=== PATIENT | female | born 1995 | race Caucasian/White ===

== ENCOUNTER 2022-12-19 12:04 | Outpatient (CLI) | payer MEDICAID, SELFPAY | END 2022-12-19 12:05 | disposition home or self-care (01) | LOC: NFLDREF 12:07 | PROVIDERS: Visit Provider Advanced Practice Midwife | DX: O09.33 Supervision of pregnancy with insufficient antenatal care, third trimester (principal); Z3A.33 33 weeks gestation of pregnancy | CPT/HCPCS: 82728; 86592 ==

== ENCOUNTER 2023-01-02 09:15 | Outpatient (CLI) | payer MEDICAID, SELFPAY | END 2023-01-02 09:16 | disposition home or self-care (01) | LOC: NFLDREF 01-05 14:51 | PROVIDERS: Visit Provider Advanced Practice Midwife | DX: Z34.83 Encounter for supervision of other normal pregnancy, third trimester (principal) | CPT/HCPCS: 87081; 87653 ==

== ENCOUNTER 2023-01-26 09:50 | Outpatient (CLI) | payer BC, SELFPAY ==
--- NOTE | 2023-01-26 10:15 | CRLHL7_ITS ---
For Patients: As a result of the Cures Act, medical imaging exams and procedure reports are released immediately into your electronic medical record. You may view this report before your referring provider. If you have questions, please contact your health care provider. INDICATION: Third trimester scan, evaluate growth. COMPARISON: 10/09/2022 TECHNIQUE: Real time samaniego scale imaging of the fetus was performed. FINDINGS: Sonographic imaging demonstrates a single living intrauterine gestation. Fetus demonstrates a regular cardiac rate of 152 beats per minute. Fetus has a vertex position. The placenta lies left posterior. Amniotic fluid volume appears normal and there is a single deepest vertical pocket: 4.0 cm. The estimated weight is 3262gm which lies at the 30th %. On the prior OB ultrasound exam dated 10/09/2022 the estimated weight was at the 59th%. BPD 5th percentile. HC 6th percentile. AC 53rd percentile. FL 6th percentile. The HC/AC ratio measures 0.95 range (0.92-1.05). IMPRESSION: Sonographic gestational age 37 weeks 0 days and sonographic due date 02/16/2023. sonographic age 16 days behind the clinical age. Estimated weight 30th percentile. Abdominal circumference 53rd percentile. Dictated by Eliceo Huddleston MD @ 01/27/2023 5:43:54 AM (Electronically Signed)
== END 2023-01-26 09:51 | disposition home or self-care (01) ==
LOC: US 09:50
PROVIDERS: Visit Provider Advanced Practice Midwife
DX: O36.5930 Maternal care for other known or suspected poor fetal growth, third trimester, not applicable or unspecified (principal); Z3A.37 37 weeks gestation of pregnancy
CPT/HCPCS: 76816

== ENCOUNTER 2023-02-02 09:29 | Inpatient (IN) | payer BC, SELFPAY ==
[2023-02-02] VITALS (16 sets, daily range): BP systolic 98–125; BP diastolic 55–72; PULSE 48–93; RESP 16–18; TEMP 36.4–37.2; O2SAT 93–99; BMI 29.0
[2023-02-02] MEDS: OXYTOCIN 30 unit/500 ML in NS 30 UNIT/500 ML BAG 300 UNIT IVPB (10:00)
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
--- NOTE | 2023-02-02 10:57 | W.PM.OBVAGDE ---
OB Procedure Vag Delivery Mother Details Mother Details: The patient is a 27 year-old, 9, Para 4, admitted on 02/02/23 at 40.2 Days gestation. Karen presented in active labor and was found to by 9.5cm per RN exam. She started leaking fluid around 0700 and started reza shortly after. She continued to progress after admission. Only scant amounts of clear and pink fluid noted before delivery but thin meconium stained amniotic fluid noted with delivery of the head. She desired an epidural but there was not adequate time after her arrival. She coped well with contractions and during pushing. Baby was delivered after only a few pushes with good control. A loose nuchal cord was noted and was reduced before delivery. : 9 Para: 4 Weeks Gestation: 40.2 Admission Date: 02/02/23 Additional Details Amniotic Membrane Status: SROM Amniotic Membrane Rupture Date: 02/02/23 Amniotic Membrane Rupture Time: 07:00 Amniotic Membrane Fluid Description: Meconium Stained and Yellow Analgesia/Anesthesia Type: Nitrous Oxide Waterbirth: No Pitcoin: Yes (for [facility] only) Labor Onset: 07:00 Complete: 09:53 (assumed with pushing) Pushin:53 Heart: heart tones during second stage were category I. Delivery Details Delivery Date: 02/02/23 Delivery Time: 09:59 Route of delivery: Gender: Female Infant Viability: Alive; Heart Rate Present Position at Delivery: OA Delivery Details: At 0959 a viable female delivered in vertex OUSMANE presentation over intact perineum via spontaneous vaginal delivery.? was placed on maternal abdomen.? Cord was clamped and cut after a >5 minute delay.? Nose and mouth were bulb suctioned.? weight 3310g (7lb 5oz).? 7 at 1 minute and 8 at 5 minutes.? Shoulder dystocia: no.? Nuchal cord: yes, x1, loose, reduced on perineum.?There was partial tearing of the umbilical cord when gentle cord traction was applied. Could see the uterus almost to the perineum but unable to use cord traction as any pressure on the cord resulted in further tearing. Bleeding was stable. She was able to get in a squatting position and push the placenta out with only guidance of the placenta using the cord. There were trailing membranes that did release with gentle teasing with a ring forceps. 1 Minute Interval Total Score: 7 5 Minute Interval Total Score: 8 Additional Details Shoulder Dystocia: No Placenta Delivery Time: 10:27 Placental Delivery Description: Spontaneous Procedure Done: Global Blood Loss: 100 Laceration: None Episiotomy Description: None Blood Loss Measurement Type: QBL Bakri Used: No Sponge/Need Count Correct: Yes Cord Vessel Description: 3 Vessels, Nuchal Cord, Loose and Reduced Event Summary Status: Mother and infant were stable after delivery. Disposition: floor
[2023-02-02] MEDS: OXYTOCIN 30 unit/500 ML in NS 30 UNIT/500 ML BAG 300 UNIT IV (22:28)
[2023-02-02] MEDS: IBUPROFEN 600 MG TABLET PO (22:34)
[2023-02-03 01:17] VITALS: BP 84/54; PULSE 77; RESP 16; TEMP 36.9; O2SAT 97
[2023-02-03 01:24] VITALS: BP 111/72; PULSE 82; RESP 18; O2SAT 99
[2023-02-03 03:57] VITALS: BP 94/62; PULSE 78; RESP 18; TEMP 36.6; O2SAT 97
[2023-02-03 04:10] LABS: Basophils Percent Auto 0.2 % (0.0-3.0); Eosinophils Percent Auto 0.2 % (0.0-7.0); Hematocrit 27.5 % (33.0-51.0); Hemoglobin* 8.8 gm/dL (12.0-16.0); Immature Granulocytes Pct Auto 0.2 %; Lymphocytes Percent Auto 10.2 % (20-44); Mean Corpuscular HGB Conc 32 gm/dL (32-36); Mean Corpuscular Hemoglobin 29 pg (26-34); Mean Corpuscular Volume 89 fL (80-100); Monocytes Percent Auto 6.2 % (0.0-11.0); Platelet Count* 228 K/uL (140-440); RDW Coefficient of Variation % 15.4 % (11.5-15.5); Red Blood Count 3.08 m/uL (4.00-5.20); White Blood Count* 17.15 K/uL (4.50-11.00)
[2023-02-03 04:13] LABS: Slide Review Reflex No
--- NOTE | 2023-02-03 09:03 | PM.OBPNVD1 ---
OB - PN:Subj Subjective Date Seen: 02/03/23 Patient comments OB post-: pain well controlled, perineal pain, tolerating diet and flatus present [place] status: and doing well [place] feeding status: exclusively Narrative: Karen is a 27 y.o. G 9 P 4054 who was admitted to L & D for spontaneous onset of labor. ?She had an uncomplicated NVD. Her was complicated by slow hemorrohage. Her Total QBL as of this morning was 1015. Hgb is 8.8, pt is asymptomatic. The patient feels well. ?The pain is well controlled with current medications. ?She has no new complaints. ?She is breast feeding and reports things are going well. the patient has done well.? Vitals have been stable.? She has remained afebrile.? Has a good appetite, is tolerating a general diet. ?She is voiding without difficulty.? She is passing gas and has not had a bowel movement.? She is ambulating and denies any dizziness.? Has small amount of rubra lochia. She is planning condoms for prevention. Pt does desire discharge home today. Encouraged to monitor bleeding today due to slow PPH with discharge tomorrow. Will reassess later today. OB - PN: Obj Exam Physical Exam: Vital signs: Temp Pulse Resp BP Pulse Ox O2 Del Method 97.9 F 78 18 94/62 97 Room Air 02/03/23 03:57 02/03/23 03:57 02/03/23 03:57 02/03/23 03:57 02/03/23 03:57 02/03/23 03:57 Narrative: GENERAL APPEARANCE:? normal affect, alert, no distress MOOD:? appropriate CHEST:? clear to auscultation HEART:? regular rate and rhythm ABDOMEN:? soft, non-tender the uterine fundus is 2 below Umbilicus, Midline and is appropriate for the stage of recovery. PERINEUM:? mild edema of the perineum. EXTREMITIES:? normal and trace edema OB - PN: Obj Data Labs Labs: Laboratory Results - last 24 hr 02/03/23 04:00 WBC 17.15 H RBC 3.08 L Hgb 8.8 L Hct 27.5 L MCV 89 MCH 29 MCHC 32 RDW Coeff of [place] 15.4 Plt Count 228 Neut % (Auto) 83.0 H Lymph % (Auto) 10.2 L [place] % (Auto) 6.2 Eos % (Auto) 0.2 Baso % (Auto) 0.2 Neut # (Auto) 14.20 H Lymph # (Auto) 1.70 [place] # (Auto) 1.10 H Eos # (Auto) 0.00 Baso # (Auto) 0.00 Abs Immat Gran (auto) 0.00 Imm/Tot Granulo (auto) 0.2 Blood Type O Positive Antibody Screen NEGATIVE OB - PN: A/P Delivery Assessment and Plan (1) care and examination immediately after delivery: Status: Acute (2) Lactating mother: Status: Acute (3) Late care: Status: Acute (4) Anemia: Problem details: Requested records from [facility] Status: Acute Assessment and Plan: Taking oral iron, does not respond well. Plan iron transfusion while in hospital. Would benefit from outpatient Iron transfusion. (5) Normal vaginal delivery: Status: Acute (6) hemorrhage: Status: Acute Plan day: 1 Plan: routine care Comments: plan: Routine care PPH continue to monitor bleeding. , may see if needed Hgb 8.8. Pt has been taking oral iron, does not respond well. Plan iron infusion today.
[2023-02-03 09:04] VITALS: BP 99/68; PULSE 78; RESP 16; TEMP 36.6; O2SAT 95
[2023-02-03] MEDS: IRON SUCROSE COMPLEX 200 MG in 0.9 % SODIUM CHLORIDE 100 ml 440 MG IVPB (10:54)
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
[2023-02-03 16:30] VITALS: BP 106/70; PULSE 99; RESP 16; TEMP 36.7; O2SAT 98
[2023-02-04 01:00] VITALS: BP 95/52; PULSE 94; RESP 18; TEMP 37; O2SAT 96
[2023-02-04 06:36] LABS: Hemoglobin* 8.5 gm/dL (12.0-16.0)
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
[2023-02-04 08:03] VITALS: BP 103/70; PULSE 87; RESP 18; TEMP 36.7; O2SAT 98
[2023-02-04 20:41] LABS: Ferritin* 50.3 ng/mL (6.24-137.0)
== END 2023-02-04 11:10 | disposition home or self-care (01) | DRG 560 ==
LOC: OB OUT 10:03 → OB 10:03
PROVIDERS: Advanced Practice Midwife; Admitting Provider Advanced Practice Midwife; Visit Provider Advanced Practice Midwife
DX: O77.0 Labor and delivery complicated by meconium in amniotic fluid (principal); Z91.410 Personal history of adult physical and sexual abuse; Z63.0 Problems in relationship with spouse or partner; O72.1 Other immediate postpartum hemorrhage; O99.02 Anemia complicating childbirth; D62 Acute posthemorrhagic anemia; Z37.0 Single live birth; Z3A.40 40 weeks gestation of pregnancy
CPT/HCPCS: 36415; 82728; 85018; 85025; 86850; 86900; 86901; A9270; J1756

== ENCOUNTER 2024-04-20 14:52 | Outpatient (CLI) | payer BC, SELFPAY ==
[2024-04-20 19:00] LABS: Chlamydia DNA Amplified* NOT DETECTED (No Detected); GC DNA Amplified* NOT DETECTED (No Detected)
[2024-04-26 17:00] LABS: HPV Source Cervical; HPV, High Risk by TMA Not Detected
== END 2024-04-20 14:53 | disposition home or self-care (01) ==
PROVIDERS: Visit Provider Advanced Practice Midwife
DX: Z34.91 Encounter for supervision of normal pregnancy, unspecified, first trimester (principal)
CPT/HCPCS: 83020; 83021; 84702; 85660; 86592; 86703; 86704; 86706; 86762; 86787; 86803; 86850; 86900; 86901; 87086; 87340; 87491; 87591; 87624; 87625; 88141; 88142

== ENCOUNTER 2024-07-26 12:06 | Day surgery (SDC) | payer BC, SELFPAY ==
[2024-07-26] VITALS (20 sets, daily range): BP systolic 86–131; BP diastolic 39–90; PULSE 56–128; RESP 12–22; TEMP 36.2–37.3; O2SAT 96–100; BMI 26.6
--- OUTSIDE RECORDS SUMMARY | 2024-07-26 12:09 | XMS_ITS | CCD ---
Author Name Interface, [id number] lity Address [address] [place], [place] [id number] [facility] Address [facility] [place] [address] Care Team Providers Care Looping Machine Operator Name Role Phone Interface, [id number] Unavailable Unavail able Reason for Visit Social History Date Name Value Sex Female
--- OUTSIDE RECORDS SUMMARY | 2024-07-26 12:09 | XMS_ITS | Continuity of Care Document ---
Author Organization [facility] Address [address], [address] [place] [address] Phone Care Team Providers Care Commissioner Of Relocation Services Name Role Phone Unavailable Unavailable Unavailable Advance Directives Directive Yes / No Effective Date File Name No Information Encounters Encounter Description Practice Location Reason(s) For Visit Diagnoses Date Provider [facility], [address], [address], [place], [id number], [place] tel:[phone] CLOSED [address] [facility] No Information 2013 No Information Family History Family Member Type Diagnosis Age At Onset No Information Payers Payer name Insurance type Covered green party ID Authoriza tion(s) No Information Social History Type Description Quantity Date Captured Comments Sex Female Smoking Status No Information Chief Complaint And Reason For Visit No Information History Of Present Illness Encounter Date Complaint History Of Prese nt Illness No Information Instructions Date Instruction Additional Infor mation No Information Assessments Type Assessment Date No Information
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
--- NOTE | 2024-07-26 12:22 | CRLHL7_ITS ---
For Patients: As a result of the Century Cures Act, medical imaging exams and procedure reports are released immediately into your electronic medical record. You may view this report before your referring provider. If you have questions, please contact your health care provider. INDICATION: Vaginal bleeding and pain, beta hCG is negative. TECHNIQUE: Ultrasound pelvis transvaginal for better assessment or to better visualize the endometrium. Real-time sonographic images with spectral and color Doppler imaging of the ovaries were obtained. COMPARISON: None. FINDINGS: Uterus: 10 x 5 x 6 cm. Normal echotexture of the myometrium. No masses. Endometrium: Transvaginal imaging was performed to better evaluate the endometrium. Endometrial thickness measures 2.8 centimeter. The endometrium is heterogeneous with internal vascularity within peripheral tubular structures. Right ovary 3.2 x 1.6 x 2.2 centimeters. Left ovary 4.1 x 2.4 x 2.9 centimeters. In the right ovary there is a 1.5 x 1.1 x 1.7 centimeter cystic lesion with internal reticulation. Normal arterial and venous blood flow is demonstrated in both ovaries. Cul-de-sac: Moderate fluid in the pelvis with the products and likely clotted blood. In the right adnexa there is an echogenic lesion measuring 3.1 x 1.4 x 2.8 centimeters vascularity was not measured to determine if this is a mass or clotted blood. IMPRESSION: Right ovarian lesion with internal reticulation and moderate blood products in the pelvis is concerning for hemorrhagic cyst rupture. Heterogeneous endometrium with peripheral tubular structures containing vascularity is concerning for AV malformation. There is an echogenic right adnexal lesion, which may represent a blood clot versus mass. Consider repeat ultrasound in 6-8 weeks to evaluate for interval change. Dictated by Tanna Lima MD @ 07/26/2024 1:28:24 PM (Electronically Signed)
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
[2024-07-26 12:54] LABS: Basophils Absolute Auto 0.05 K/uL (0.00-0.30); Basophils Percent Auto 0.6 % (0.0-3.0); Eosinophils Absolute Auto 0.17 K/uL (0.00-0.50); Eosinophils Percent Auto 2.2 % (0.0-7.0); Hematocrit 37.3 % (33.0-51.0); Hemoglobin* 12.5 gm/dL (12.0-16.0); Lymphocytes Absolute Auto 2.15 K/uL (0.90-2.90); Lymphocytes Percent Auto 27.8 % (20-44); Mean Corpuscular HGB Conc 34 gm/dL (32-36); Mean Corpuscular Hemoglobin 31 pg (26-34); Mean Corpuscular Volume 93 fL (80-100); Monocytes Percent Auto 9.4 % (0.0-11.0); Neutrophils Absolute Auto 4.64 K/uL (1.7-7.0); Platelet Count* 343 K/uL (140-440); RDW Coefficient of Variation % 12.5 % (11.5-15.5); Red Blood Count 4.02 m/uL (4.00-5.20); White Blood Count* 7.74 K/uL (4.50-11.00)
[2024-07-26 12:57] LABS: Slide Review Reflex No
[2024-07-26 13:07] LABS: Chloride* 104 mmol/L (96-114); Sodium* 135 mmol/L (135-149)
[2024-07-26 13:10] LABS: Blood Urea Nitrogen* 13 mg/dL (5-24); Creatinine* 0.8 mg/dL (0.5-1.5); Est. Creatinine Clearance* 88.79; Estimated Glomerular Filt Rate 102 ml/min
[2024-07-26 13:11] LABS: Anion Gap 9 mEq/L (7-15); Calcium* 9.3 mg/dL (8.4-10.6); Carbon Dioxide* 22 mmol/L (20-32); Glucose* 126 mg/dL (60-115); HCG Qualitative Serum* Negative (Negative)
[2024-07-26] MEDS: LACTATED RINGERS 1000 ML 1,000 ML IV (13:26)
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
[2024-07-26] MEDS: LACTATED RINGERS 1000 ML 1,000 ML 100 ML IV ×2 (14:05→15:09)
--- NOTE | 2024-07-26 14:31 | SUR.PREOP ---
pt brought via w/c to [facility] from ED. pt reported to have stable vitals and in stable condition upon transfer. patient verbalized upon arrival to [facility] I am feeling dizzy and week. a minute after patient slumped over in w/c at bedside in room. specification writer, 2 other nurses in room with patients mom and lifted patient into bed. pt then came to when in bed. fluids started and vitals monitored. see vs.
[2024-07-26] MEDS: 0.9 % SODIUM CHLORIDE 500 ML 250 ML IV (15:10)
--- OUTSIDE RECORDS SUMMARY | 2024-07-26 15:13 | XMS_ITS | Continuity of Care Document ---
Author Organization Merged With [facility] Address [address], [address] [place] [address] Phone Care Team Providers Care Three Knife Trimmer Name Role Phone Unavailable Unavailable Unavailable Advance Directives Directive Yes / No Effective Date File Name No Information Encounters Encounter Description Practice Location Reason(s) For Visit Diagnoses Date Provider Merged With [facility], [address], [address], [place], [id number], [place] tel:[phone] CLOSED 53 [facility] No Information 2013 No Information Family History Family Member Type Diagnosis Age At Onset No Information Payers Payer name Insurance type Covered libertarian ID Authoriza tion(s) No Information Social History Type Description Quantity Date Captured Comments Sex Female Smoking Status No Information Chief Complaint And Reason For Visit No Information History Of Present Illness Encounter Date Complaint History Of Prese nt Illness No Information Instructions Date Instruction Additional Infor mation No Information Assessments Type Assessment Date No Information
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
[2024-07-26 15:14] LABS: Basophils Percent Auto 0.4 % (0.0-3.0); Eosinophils Percent Auto 0.3 % (0.0-7.0); Hematocrit 30.7 % (33.0-51.0); Hemoglobin* 10.2 gm/dL (12.0-16.0); Immature Granulocytes Pct Auto 1.4 %; Lymphocytes Percent Auto 8.4 % (20-44); Mean Corpuscular HGB Conc 33 gm/dL (32-36); Mean Corpuscular Hemoglobin 31 pg (26-34); Mean Corpuscular Volume 93 fL (80-100); Monocytes Percent Auto 6.4 % (0.0-11.0); Neutrophils Percent Auto 83.1 % (42.0-72.0); Platelet Count* 257 K/uL (140-440); RDW Coefficient of Variation % 12.6 % (11.5-15.5); Red Blood Count 3.31 m/uL (4.00-5.20); White Blood Count* 13.95 K/uL (4.50-11.00)
[2024-07-26 15:20] LABS: Slide Review Reflex No
[2024-07-26] MEDS: DOXYCYCLINE HYCLATE 200 MG in 0.9 % SODIUM CHLORIDE 250 ml 250 ML 250 MG IVPB (15:30)
--- NOTE | 2024-07-26 15:30 | P.ANES_ITS ---
Anesthesia Charges Start Date/Time Anesthesia Start Date: 07/26/24 Anesthesia Start Time: 14:45 Stop Date/Time Anesthesia Stop Date: 07/26/24 Anesthesia Stop Time: 15:30 Summary Emergency: JEREMIAH Coding CPT Codes CPT Codes: ANESTH HYSTEROSCOPE/GRAPH - 91272 ([id number]) P1 - NORMAL HEALTHY PATIENT, QK - FLASK MAKER 2-4 CNCRNT ANES PROC, QX - FINANCIAL INTERN SVC W/ MD MED DIRECTION Additional Codes: Summary - Emergency: JEREMIAH ([id number])
--- NOTE | 2024-07-26 15:30 | W.ANESCHARGE ---
Anesthesia Charges Start Date/Time Anesthesia Start Date: 07/26/24 Anesthesia Start Time: 14:45 Stop Date/Time Anesthesia Stop Date: 07/26/24 Anesthesia Stop Time: 15:30 Summary Emergency: JEREMIAH Coding CPT Codes CPT Codes: ANESTH HYSTEROSCOPE/GRAPH - 55837 ([id number]) P1 - NORMAL HEALTHY PATIENT, QK - FINANCIAL SPECIALIST 2-4 CNCRNT ANES PROC, QX - TOWBOAT OPERATOR SVC W/ MD MED DIRECTION Additional Codes: Summary - Emergency: JEREMIAH ([id number])
--- NOTE | 2024-07-26 15:34 | P.ANES_ITS ---
Anesthesia Charges Start Date/Time Anesthesia Start Date: 07/26/24 Anesthesia Start Time: 14:45 Stop Date/Time Anesthesia Stop Date: 07/26/24 Anesthesia Stop Time: 15:30 Summary Emergency: RETAIL EXPERIENCE SPECIALIST Coding CPT Codes CPT Codes: ANESTH VAGINAL PROCEDURES - 66313 ([id number]) P1 - NORMAL HEALTHY PATIENT, QK - WEED SPRAYER 2-4 CNCRNT ANES PROC, QX - RETAIL EXPERIENCE SPECIALIST SVC W/ MD MED DIRECTION Additional Codes: Summary - Emergency: RETAIL EXPERIENCE SPECIALIST ([id number])
--- NOTE | 2024-07-26 15:34 | W.ANESCHARGE ---
Anesthesia Charges Start Date/Time Anesthesia Start Date: 07/26/24 Anesthesia Start Time: 14:45 Stop Date/Time Anesthesia Stop Date: 07/26/24 Anesthesia Stop Time: 15:30 Summary Emergency: STREET LIGHT LAMP CLEANER Coding CPT Codes CPT Codes: ANESTH VAGINAL PROCEDURES - 62876 ([id number]) P1 - NORMAL HEALTHY PATIENT, QK - CLINICAL ACADEMIC ALLERGIST 2-4 CNCRNT ANES PROC, QX - STREET LIGHT LAMP CLEANER SVC W/ MD MED DIRECTION Additional Codes: Summary - Emergency: STREET LIGHT LAMP CLEANER ([id number])
--- NOTE | 2024-07-26 15:35 | W.PM.GYNPROC ---
Procedure Note Date of procedure: 07/26/24 Will [facility] bill your pro fee for this procedure?: Yes Pre-op diagnosis: Abnormal uterine bleeding/hemorrhage History of miscarriage in April 2024 Post-op diagnosis: Suspect retained products of conception Procedure: Suction uterine curettage Anesthesia: MAC Complications: None Surgeon: Anika pineda MD Estimated blood loss (mL): 25 IV fluids (mL): 1,300 Urine Output (mL): 50 Pathology: specimen obtained, sent to pathology Disposition: floor Findings: 1. On exam under anesthesia, vulva, vagina, and cervix were normal appearance. The cervix was slightly dilated at the external os. Uterus was mobile and retroverted, of normal size and texture. 2. There was a moderate amount of tissue obtained with suction curettage that was partially calcified and consistent in appearance with retained products of conception. Procedure Description: Procedure in detail: Patient was taken to the operating with IV running. She was placed in dorsal lithotomy position. Monitored anesthesia care was administered. She was prepped and draped in the usual sterile fashion. Her bladder was straight catheterized for the above-noted amount. Exam under anesthesia was performed for the above-noted findings. Speculum was inserted. Cervix was grasped along its anterior lip with a single-tooth tenaculum. Paracervical block was performed with a total of 10 mL of 1% lidocaine. The cervix was serially dilated to 8 Nepali. A size 7 rigid suction cannula was then passed through the cervix to the uterine fundus. Suction was applied, and the suction cannula was withdrawn along the path of insertion. This was repeated several more times, with obvious return of products of conception or other tissue. Thereafter, sharp curettage was performed circumferentially, and a gritty texture was noted throughout. Minimal tissue was obtained with curettings. Procedure was deemed complete. Given the appearance of the tissue obtained with suction curettage, I opted to give the patient doxycycline 200 mg IV. She was also given 1 g of tranexamic acid to slow any further bleeding. The tenaculum was removed from the anterior lip the cervix, and hemostasis was noted. The speculum was then removed from the vagina. Patient tolerated procedure well and was taken recovery area in stable condition. Postoperative debrief was verbalized with OR staff, including a verification of pathology specimens to be sent as described above.
[2024-07-26 15:37] LABS: INR 0.99 (0.91-1.10); Prothrombin Time 13.9 Seconds
[2024-07-26 15:38] LABS: Partial Thromboplastin Time* 22 Seconds (23-33)
[2024-07-26 15:39] LABS: Fibrinogen* 301 mg/dL (200-450)
--- NOTE | 2024-07-26 16:47 | SUR.PHASEII ---
Patient tolerating toast and yogurt. Tolerating oral liquids. Dr. Coy notified of patients status. OK to saline lock. Only 1 unit of blood ordered per Dr. Coy. Ok to transfer patient to [facility] for further monitoring per Dr. Coy.
--- NOTE | 2024-07-26 17:54 | PC.NURSE ---
Blood ended at 1630 per report from Audra Hernandez RN.
[2024-07-26 19:03] LABS: Basophils Percent Auto 0.2 % (0.0-3.0); Hematocrit 31.6 % (33.0-51.0); Hemoglobin* 10.6 gm/dL (12.0-16.0); Immature Granulocytes Pct Auto 0.1 %; Lymphocytes Percent Auto 4.6 % (20-44); Mean Corpuscular HGB Conc 34 gm/dL (32-36); Mean Corpuscular Hemoglobin 31 pg (26-34); Mean Corpuscular Volume 92 fL (80-100); Monocytes Percent Auto 1.7 % (0.0-11.0); Neutrophils Percent Auto 93.4 % (42.0-72.0); Platelet Count* 240 K/uL (140-440); RDW Coefficient of Variation % 12.8 % (11.5-15.5); Red Blood Count 3.42 m/uL (4.00-5.20); White Blood Count* 13.18 K/uL (4.50-11.00)
[2024-07-26 19:04] LABS: Slide Review Reflex No
--- NOTE | 2024-07-26 19:19 | PC.NURSE ---
End of shift: Patient pleasant and cooperative, A&O. VSS, afebrile. Scant vaginal bleeding in pad this shift. tolerating regular diet drinking fluids.
--- NOTE | 2024-07-26 20:32 | PC.NURSE ---
End of shift report : Pleasant and cooperative with cares. Denies any pain, SOB, dizziness or lightheadedness. Repeat Hgb 10.6. Sanitary pad has 4 nickel sized areas of bleeding, no clots noted and no increased in vaginal discharge/bleeding with ambulation. Halo message sent to Dr. Coy per MD request with update prior to discharge and MD gave ok for patient to [place]. Reviewed discharge paperwork with patient, patient verbalizes understanding of post hospital medications and care. IV to right and left discontinued, catheter tip intact. Assisted patient to emergency room via wheelchair, accompanied by mother.
== END 2024-07-26 20:05 | disposition home or self-care (01) ==
LOC: ED 13:45 → SS 14:00 → MEDSURG 18:05
PROVIDERS: Surgery; Emergency Provider Student in an Organized Health Care Education/Training Program; Visit Provider Obstetrics & Gynecology
PROC: (CPT 59812; principal; 2024-07-26 14:30)
DX: O03.1 Delayed or excessive hemorrhage following incomplete spontaneous abortion (principal)
CPT/HCPCS: 59812; 00940; 00952; 01965; 36415; 36430; 76830; 80048; 84703; 85018; 85025; 85384; 85610; 85730; 86850; 86900; 86901; 86922; 88305; 93976; 99140; 99285; J1100; J2250; J2371; J2405; J2704; J3010; J3490; J7030; J7050; J7120; P9016

== ENCOUNTER 2024-08-09 10:24 | Outpatient (CLI) | payer BC, SELFPAY | END 2024-08-09 10:25 | disposition home or self-care (01) | LOC: NFLDREF 10:54 | PROVIDERS: Visit Provider Obstetrics & Gynecology | DX: N93.9 Abnormal uterine and vaginal bleeding, unspecified (principal) | CPT/HCPCS: 84443 ==